=== PATIENT | female | born 1965 | race Caucasian/White ===

== ENCOUNTER 2021-03-23 10:28 | Outpatient (REF) | payer OTHER, SELFPAY ==
[2021-03-23 11:42] LABS: Estimated Average Glucose 108 mg/dL; Hemoglobin A1c % 5.4 %
[2021-03-23 12:03] LABS: Cholesterol 185 mg/dL; HDL Cholesterol 44 mg/dL; LDL Cholesterol Calculated 115 mg/dl; Triglycerides 134 mg/dL
== END 2021-03-23 10:29 | disposition home or self-care (01) ==
LOC: HO.LAB 10:28
PROVIDERS: PCP Internal Medicine; Visit Provider Registered Nurse
DX: Z13.220 Encounter for screening for lipoid disorders (principal)
CPT/HCPCS: 36415; 80061; 83036

== ENCOUNTER → 2021-09-17 09:41 | Outpatient (BNVA) | payer OTHER, SELFPAY | PROVIDERS: PCP Internal Medicine; Visit Provider Nurse Practitioner Family | DX: M47.812 Spondylosis without myelopathy or radiculopathy, cervical region (principal); M79.18 Myalgia, other site | CPT/HCPCS: 99202 ==

== ENCOUNTER → 2021-10-15 11:24 | Outpatient (BNVA) | payer OTHER, SELFPAY | PROVIDERS: PCP Internal Medicine; Visit Provider Nurse Practitioner Family | DX: M47.812 Spondylosis without myelopathy or radiculopathy, cervical region (principal); M79.18 Myalgia, other site | CPT/HCPCS: 99212 ==

== ENCOUNTER 2021-12-23 14:53 | Outpatient (REF) | payer OTHER, SELFPAY ==
--- NOTE | ~2021-12-23 | XR_ITS ---
EXAMINATION: XR LUMBOSACRAL SPINE WITH OBLIQUES CLINICAL INFORMATION: Low back pain. COMPARISON: None TECHNIQUE: AP, both oblique, and lateral views of the lumbar spine. Lateral view of the lumbosacral junction. FINDINGS: There is normal lumbar lordosis. The vertebral heights, alignment and disc heights are normal. There is no visible acute fracture, dislocation or subluxation. On oblique views there is no pars defect. No lytic or sclerotic process seen. SI joints are symmetrical and normal. The soft tissues are normal. XR/XR lumbar spine 4V min IMPRESSION: Unremarkable lumbar spine exam.
== END 2021-12-23 14:54 | disposition home or self-care (01) ==
LOC: HO.XRAY 14:53
PROVIDERS: PCP Internal Medicine; Visit Provider Psychiatry & Neurology Neurology
DX: M51.26 Other intervertebral disc displacement, lumbar region (principal)
CPT/HCPCS: 72110

== ENCOUNTER 2022-02-04 06:26 | Outpatient (REF) | payer OTHER, SELFPAY ==
--- NOTE | ~2022-02-04 | FL_ITS ---
EXAMINATION: XR FLUOROSCOPY WITH IMAGES CLINICAL INFORMATION: Spondylosis without myelopathy or radiculopathy cervical region. COMPARISON: MRI of 03/31/2018 and plain film study of 03/20/2011. TECHNIQUE: Fluoroscopy performed by Dr. Robert Kumar. Fluoroscopy time: 1.3 minutes DAP: 2.3 Gy-cm2 Images: 6 FINDINGS: Patient is status post previous fusion C5 through C7. [place] and contrast injections are seen bilaterally at what appear to be the C2, C3, and C4 vertebral levels. FL/FL guidance in treatment room IMPRESSION: Fluoroscopy for pain management procedure.
== END 2022-02-04 06:27 | disposition home or self-care (01) ==
LOC: HO.RADIR 06:26
PROVIDERS: Visit Provider Anesthesiology
DX: M47.812 Spondylosis without myelopathy or radiculopathy, cervical region (principal)
CPT/HCPCS: 64490; 64491

== ENCOUNTER 2022-03-18 06:18 | Outpatient (REF) | payer OTHER, SELFPAY ==
--- NOTE | ~2022-03-18 | FL_ITS ---
EXAMINATION: XR FLUOROSCOPY WITH IMAGES CLINICAL INFORMATION: M47.812 - Spondylosis without myelopathy or radiculopathy, cervical region COMPARISON: MRI cervical spine 03/31/2018 TECHNIQUE: Fluoroscopy performed by Dr. Robert Kumar. Fluoroscopy time: 0.6 minutes. Cumulative Dose: 11.9 mGy. DAP: 2.48 Gy-cm2. Images: 6. FINDINGS: There are spinal needles overlying the bilateral lateral masses cervical spine approximately bilateral level C2, C3, and C4. There is contrast in the paraspinal soft tissues and nerve sheaths. No visible vascular communication. There is anterior plate and screws overlying cervical spine, on MRI C5-C7. FL/FL guidance in treatment room IMPRESSION: Fluoroscopy for pain management procedure.
== END 2022-03-18 06:19 | disposition home or self-care (01) ==
LOC: HO.RADIR 06:18
PROVIDERS: Visit Provider Anesthesiology
DX: M47.812 Spondylosis without myelopathy or radiculopathy, cervical region (principal); M79.18 Myalgia, other site
CPT/HCPCS: 64490; 64491; J2795; Q9967

== ENCOUNTER 2022-04-22 06:28 | Outpatient (REF) | payer OTHER, SELFPAY ==
--- NOTE | ~2022-04-22 | FL_ITS ---
EXAMINATION: XR FLUOROSCOPY WITH IMAGES CLINICAL INFORMATION: M47.812 - Spondylosis without myelopathy or radiculopathy, cervical region COMPARISON: MR cervical spine 03/31/2018 TECHNIQUE: Fluoroscopy performed by Dr. Robert Kumar. Fluoroscopy time: 0.7 minutes. Cumulative Dose: 5.91 mGy. DAP: 1.11 Gy-cm2. Images: 6. FINDINGS: There are spinal needles overlying the bilateral lateral masses cervical spine approximately C3, C4, C5. There is contrast in the paraspinal soft tissues and nerve sheaths. No visible vascular communication. There is plate and screws overlying the lower anterior cervical spine from prior fusion procedure. FL/FL guidance in treatment room IMPRESSION: Fluoroscopy for pain management procedure.
== END 2022-04-22 06:29 | disposition home or self-care (01) ==
LOC: HO.RADIR 06:28
PROVIDERS: Visit Provider Anesthesiology
DX: M47.812 Spondylosis without myelopathy or radiculopathy, cervical region (principal); M79.18 Myalgia, other site
CPT/HCPCS: 64490; 64491; J3300

== ENCOUNTER → 2022-06-12 15:54 | Outpatient (BNVA) | payer OTHER, SELFPAY | PROVIDERS: PCP Internal Medicine; Visit Provider Nurse Practitioner Family | DX: M47.812 Spondylosis without myelopathy or radiculopathy, cervical region (principal); M79.18 Myalgia, other site | CPT/HCPCS: 99212 ==

== ENCOUNTER 2022-07-29 06:18 | Outpatient (REF) | payer OTHER, SELFPAY ==
--- NOTE | ~2022-07-29 | FL_ITS ---
EXAMINATION: XR FLUOROSCOPY WITH IMAGES CLINICAL INFORMATION: M47.812 - Spondylosis without myelopathy or radiculopathy, cervical region COMPARISON: Fluoroscopic spot views 04/22/2022 TECHNIQUE: Fluoroscopy Supervised By: Dr. Robert Kumar. Fluoroscopy Time: 0.6 minutes. Cumulative Dose: 11.8 mGy. DAP: 2.13 Gycm2. Images: 6. FINDINGS: There are spinal needles overlying the bilateral lateral masses cervical spine approximately levels of C3, C4, and C5. There is contrast in the paraspinal soft tissues and nerve sheaths. No visible vascular communication. Fusion hardware with plate and screws again seen lower cervical spine. FL/FL guidance in treatment room IMPRESSION: Fluoroscopy for pain management procedure.
[2022-07-29 10:22] LABS: Glucose, Whole Blood 105 mg/dL (60-115)
== END 2022-07-29 06:19 | disposition home or self-care (01) ==
LOC: CF 06:18
PROVIDERS: Visit Provider Anesthesiology
DX: M47.812 Spondylosis without myelopathy or radiculopathy, cervical region (principal); M79.18 Myalgia, other site
CPT/HCPCS: 64490; 64491; 82947; J2795; J3301

== ENCOUNTER → 2022-08-26 10:26 | Outpatient (BNVA) | payer OTHER, SELFPAY | PROVIDERS: PCP Internal Medicine; Visit Provider Nurse Practitioner Family | DX: M47.812 Spondylosis without myelopathy or radiculopathy, cervical region (principal); M79.18 Myalgia, other site | CPT/HCPCS: 99212 ==

== ENCOUNTER 2022-10-11 08:12 | Outpatient (REF) | payer OTHER, SELFPAY ==
[2022-10-11 09:26] LABS: Estimated Average Glucose 111 mg/dL; Hemoglobin A1c % 5.5 %
[2022-10-11 09:52] LABS: Cholesterol 236 mg/dL; HDL Cholesterol 39 mg/dL; LDL Cholesterol Calculated 172 mg/dl; Triglycerides 128 mg/dL
== END 2022-10-11 08:13 | disposition home or self-care (01) ==
LOC: HO.LAB 08:12
PROVIDERS: PCP Internal Medicine; Visit Provider Registered Nurse
DX: F81.81 Disorder of written expression (principal); Z79.899 Other long term (current) drug therapy
CPT/HCPCS: 36415; 80061; 83036

== ENCOUNTER → 2022-10-17 08:50 | Outpatient (BNVA) | payer OTHER, SELFPAY | PROVIDERS: PCP Internal Medicine; Visit Provider Internal Medicine | DX: M54.12 Radiculopathy, cervical region (principal) ==

== ENCOUNTER 2023-05-14 07:54 | Outpatient (AMB) | payer OTHER, SELFPAY ==
--- NOTE | 2023-05-14 08:04 | MHC.OFFVIS ---
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 Allergies isopropyl alcohol Allergy (Verified 05/14/23 08:06) Unknown silver [From Tegaderm AG Mesh] Allergy (Verified 05/14/23 08:06) Unknown prochlorperazine [From Compazine] Adverse Reaction (Severe, Verified 05/14/23 08:06) jaw clenching Medication List - Last Reconciled 05/14/23 by Nanci Zuniga MD clonazepam 1 mg PO .prn hydromorphone mg PO hydromorphone 2 mg PO Q4-6H PRN lamotrigine 25 mg PO DAILY lamotrigine 100 mg PO BID lorazepam 1 mg PO DAILY PRN meclizine 25 mg PO BID PRN omeprazole 20 mg PO DAILY paroxetine HCl 20 mg PO DAILY quetiapine 25 - 50 mg PO BEDTIME PRN HPI HPI Comments History of Present Illness Details 57y/o female comes for evaluation of persistent upper extremity weakness following ACDF surgery at C4-5 in November 2022. Her prior cervical spine surgery was in 2010- C5-6,C6-7 discectomy and fusion . She was doing fine until 2020 , she started having neck pain with radiating pain to right UE. she also had numbness and tingling. SHe had MRI C spine - was referred to surgery by in November 2022. The follow up c spine X rays showed good alignment but patient reports neck pain( better than before surgery) back pain , weakness UP. SHe denies numbness tingling or shooting pain. Patient is very restless , says she did not take her pain medications. she has a hand surgery on her right for thumb arthritis - 2 weeks ago. she has trouble, she was diagnosed with sleep apnea and is waiting for CPAP. she also has depression and is seeing a green marketing specialist. [facility] Surgical History H/O thumb surgery H/O: hysterectomy Family History Father Cancer Mother Biliary cirrhosis Family/Other Diabetes Acute arthritis Social History Alcohol intake: never Patient Tobacco Use Status: Never used Tobacco Use of substances other than those prescribed or required for medical reasons: No Review of Systems Const Reports weight gain GI Reports constipation and Reports diarrhea Reports difficulty conceiving Musc Reports arthralgias and Reports muscle weakness Physical Exam Vital Signs: Last Vital Signs Pulse 102 H 05/14/23 08:16 BP 120/82 05/14/23 08:16 Pulse Ox 95 05/14/23 08:16 Oxygen Delivery Method Room Air 05/14/23 08:16 BMI result Body Mass Index 33.9 Const General: cooperative and anxious Nutritional Appearance: average body habitus and overweight Orientation/consciousness: patient oriented x3 Eyes Pupils: Equal, round and reactive pupils present Neuro Other: Patient is anxious She has tightness in bilateral levator and mild restricted lateral neck movements Right hand splint General: patient oriented x3, gait normal, tone normal, moves all extremities and no focal motor deficits Cranial nerves: Yes Facial sensation intact/muscles of mastication intact, Yes Equal, round and reactive pupils present, Yes Bilaterally intact EOM present, Yes Nystagmus not present, Yes Normal facial strength present and Yes Symmetric palate elevation present Cognition (Neuro): normal cognition Gait exam (Neuro): Normal gait present Motor exam (neuro): 5/5 motor strength present throughout and Normal motor muscle tone present throughout Deep tendon reflexes (DTR's): Right triceps reflex intensity grade: 3+, Left triceps reflex intensity grade: 3+, Rt Biceps (C5, C6): 2+, Left biceps reflex intensity grade: 2+, Right brachioradialis reflex intensity grade: 2+, Left brachioradialis reflex intensity grade: 2+, Right patellar reflex intensity grade: 3+, Left patellar reflex intensity grade: 3+, Right ankle reflex intensity grade: 3+ and Left ankle reflex intensity grade: 3+ Coordination: [id number] test normal Assessment & Plan Assessment & Plan (1) Cervical spondylosis: Code(s): M47.812 - Spondylosis without myelopathy or radiculopathy, cervical region (2) Myofascial pain: Code(s): M79.18 - Myalgia, other site Plan I suggested f/u with pain management. Continue neck exercises Magnesium 400mg qhs to help with neck spasm will consider muscle relaxants F/u as needed F/U with Sleep Medicine services for RHETT. Medications: New magnesium oxide 400 mg PO DAILY 30 caps 6RF Coding Level of Care Code New Pt Level 4 (44111) Diagnoses Cervical spondylosis M47.812 Myofascial pain M79.18
[2023-05-14 08:16] VITALS: BP 120/82; PULSE 102; O2SAT 95; BMI 33.9
== END 2023-05-14 08:42 | disposition home or self-care (01) ==
PROVIDERS: Visit Provider Psychiatry & Neurology Neurology
DX: M47.812 Spondylosis without myelopathy or radiculopathy, cervical region (principal); M79.18 Myalgia, other site
CPT/HCPCS: 99204

== ENCOUNTER → 2023-05-14 07:54 | Outpatient (BNVA) | payer OTHER, SELFPAY | PROVIDERS: Visit Provider Psychiatry & Neurology Neurology ==

== ENCOUNTER 2024-04-02 10:52 | Outpatient (REF) | payer OTHER, SELFPAY ==
[2024-04-02 11:16] LABS: Estimated Average Glucose 108 mg/dL; Hemoglobin A1c % 5.4 % (<6.0)
[2024-04-02 11:45] LABS: Cholesterol 157 mg/dL (<200); HDL Cholesterol 44 mg/dL (>40); LDL Cholesterol Calculated 94 mg/dL (<100); Triglycerides 99 mg/dL (<150)
== END 2024-04-02 10:53 | disposition home or self-care (01) ==
LOC: HO.LAB 10:52
PROVIDERS: Visit Provider Registered Nurse
DX: Z79.899 Other long term (current) drug therapy (principal); F31.81 Bipolar II disorder
CPT/HCPCS: 36415; 80061; 83036